=== PATIENT | female | born 1935 | race Caucasian/White ===

== ENCOUNTER 2016-12-25 09:37 | Emergency (ER) | payer MEDICARE, BC, OTHER ==
[2016-12-25] MEDS ORDERED: MORPHINE SULFATE 2 MG/ML DISP.SYRIN IM ONE (10:32)
--- NOTE | 2016-12-25 10:32 | ERNOTE ---
Medical Problem HPI - Narrative Date of Service: 12/25/16 - General Chief Complaint: General Assessment Time Seen by Provider: 12/25/16 10:28 Source: patient Exam Limitations: no limitations - Immun/Allergies/Home Medications Immunizations: IMMUNIZATION HX History of Influenza Vaccine No Hx Pneumococcal Vaccination No Allergies/Adverse Reactions: Allergies Sulfa (Sulfonamide Antibiotics) [Sulfa(Sulfonamide Antibiotics)] Allergy (Severe , Verified 12/25/16 10:10) Hives Home Medications: HOME MEDICATIONS Albuterol Sulfate [Albuterol Sulfate Hfa] 2 puff IH Q6H PRN 12/02/13 [Last Taken Unknown] Aspirin [Aspirin Chewable] 81 mg PO DAILY 12/02/13 [Last Taken 12/03/13] Hydrochlorothiazide 25 mg PO DAILY 12/02/13 [Last Taken 12/03/13] Metoprolol Succinate [Toprol Xl] 25 mg PO HS 12/02/13 [Last Taken 12/03/13] Potassium Chloride 20 meq PO DAILY 12/02/13 [Last Taken 12/03/13] Nitroglycerin [Nitrostat] 0.4 mg SL Q5MIN PRN 12/03/13 [Last Taken Unknown] Magnesium Hydroxide [Milk Of Magnesia] 30 ml PO DAILY PRN #0 udc 12/04/13 [Last Taken Unknown] traMADol HCL [Ultram] 50 mg PO QID PRN #20 tab 12/25/16 [Last Taken Unknown] - History of Present History Narrative: Pt. comes in with c/o L lateral rib pain after rolling over in bed yesterday. Pt. denies any SOB, not reproducible pain, NVD, numbness, tingling, headache, or other symptoms. Pt. states that not moving alleviates some of the pain and movement exacerbates the pain but pt. has not tried any prehospital treatment at this time. Review of Systems - Review of Systems Constitutional: Present: no symptoms reported. Absent: recent illness, fever, chills, weakness, fatigue, malaise EYE: Present: no symptoms reported ENT: Present: no symptoms reported Respiratory: Present: no symptoms reported. Absent: shortness of breath, cough , wheezing Cardiology: Present: chest pain - L lateral 10th rib Gastrointestinal/Abdominal: Present: no symptoms reported. Absent: nausea, vomiting, diarrhea Genitourinary: Present: no symptoms reported Musculoskeletal: Present: no symptoms reported. Absent: back pain, joint pain Skin: Present: no symptoms reported Neurological: Present: no symptoms reported. Absent: headache, dizziness/light- headedness, numbness, tingling All Other Systems: All systems neg except as marked - Patient's Past Medical History Patient History - Medical: Hypothyroidism Patient History - Cardiac/Respiratory: Hypertension Patient History - Cancer: No Hx of Cancer Patient History - Surgical Procedures: Appendectomy, Other Patient History - Other: None - Social History Living Situations: home Psych History: No pertinent hx Alcohol Use: none Drug Use: none - Immunizations Hx Pneumococcal Vaccination: No History of Influenza Vaccine: No Physical Exam - Physical Exam General Appearance: Present: wd/wn, alert, no apparent distress Eye Exam: Normal inspection: bilateral, PERRL: bilateral, EOMI: bilateral Ears, Nose, Throat: Present: normal ENT inspection, hearing grossly normal, normal pharynx Neck: Present: normal inspection, nontender. Absent: lymphadenopathy (R), lymphadenopathy (L) Respiratory: Present: no respiratory distress, normal breath sounds, no accessory muscle use, lungs clear, chest tenderness - L anterior 10th rib Cardiovascular/Chest: Present: regular rate, rhythm, no murmur, normal peripheral pulses Gastrointestinal/Abdominal: Present: normal bowel sounds, nontender, nondistended, soft, no organomegaly Back Exam: Present: normal inspection, normal range of motion, no CVA tenderness , no vertebral tenderness Extremity Exam: Present: normal inspection, non-tender, no edema, normal range of motion Neurological Exam: Present: alert, oriented, normal mood/affect, no motor/ sensory deficits, dry ice maker II-XII nml as tested, normal cerebellar test Skin Exam: Present: normal color, warm/dry. Absent: pallor, skin rash ED Progress - Vital Signs Patient's Vital Signs:: I have reviewed the patient's vital signs. Vital Signs: Vital Signs 12/25/16 10:04 Temperature 35.3 C L Pulse Rate 87 Respiratory 12 Rate Blood Pressure 127/62 O2 Sat by Pulse 96 Oximetry - X-Ray X-Ray #1 X-Ray: ribs Interpretation: Reviewed by me X-ray Comments: non displaced fracture of L lateral 6th and 8th ribs - Progress/Reassessment Chief Complaint: General Assessment Departure - Departure Clinical Impression: Rib fractures Qualifiers: Encounter type: initial encounter Rib fracture type: multiple ribs Fracture type: closed Laterality: left Qualified Code(s): S22.42XA - Multiple fractures of ribs, left side, initial encounter for closed fracture Disposition: Home self-care Condition: Good Instructions: Rib Fracture Additional Instructions: Please follow up with primary provider to discuss bone density testing. Deep breathe and cough 4 x every 10 minutes to prevent pneumonia. Referrals: Kamran Marie MD [Primary Care Provider] - Prescriptions: traMADol HCL [Ultram] 50 mg PO QID PRN #20 tab PRN Reason: Pain
[2016-12-25] MEDS ORDERED: MORPHINE SULFATE 2 MG/ML DISP.SYRIN ONE (10:39)
[2016-12-25 11:40] VITALS: BP 164/69
== END 2016-12-25 12:01 | disposition home or self-care (01) ==
LOC: ER 09:37
DX: S22.42XA Multiple fractures of ribs, left side, initial encounter for closed fracture (principal); I10 Essential (primary) hypertension; X50.0XXA Overexertion from strenuous movement or load, initial encounter; Y92.009 Unspecified place in unspecified non-institutional (private) residence as the place of occurrence of the external cause